=== PATIENT | female | born 1985 ===

== ENCOUNTER 2016-11-12 19:18 | Emergency (ER) | payer SELFPAY ==
--- NOTE | 2016-11-12 21:55 | C.PDOC ---
History Of Present Illness 31 year old female presents to the ED for evaluation of generalized body aches, muscular cramping and numbness to her bilateral fingertips which began around 1- 2 month ago. Patient states she feels like her whole body is "killing" her and that her "bones are going to break." Patient was recently evaluated at [facility] and was informed that she has an elevated WBC count. Patient was informed that she needed follow up and work up with PMD, but has not been able to follow up due to insurance. Patient states she has not taken any pain medication for her symptoms as she does not like to take pain meds. . She denies fever, chills. Time Seen by Provider: 11/12/16 21:19 Chief Complaint (Nursing): Back Pain History Per: Patient History/Exam Limitations: no limitations Onset/Duration Of Symptoms: Other (1-25 months ) Current Symptoms Are (Timing): Still Present Additional History Per: Patient Past Medical History Reviewed: Historical Data, Nursing Documentation, Vital Signs Vital Signs: Last Vital Signs Temp 98.2 F 11/12/16 21:58 Pulse 72 11/12/16 21:58 Resp 18 11/12/16 21:58 BP 130/86 11/12/16 21:58 Pulse Ox 99 11/12/16 22:19 - Medical History PMH: No Chronic Diseases Surgical History: No Surg Hx Family History: States: Unknown Family Hx - Social History Hx Alcohol Use: No Hx Substance Use: No - Immunization History Hx Tetanus Toxoid Vaccination: Yes Hx Influenza Vaccination: Yes Hx Pneumococcal Vaccination: Yes Review Of Systems Constitutional: Negative for: Fever, Chills Musculoskeletal: Positive for: Other (generalized body aches, muscle cramps ) Neurological: Positive for: Numbness (bilateral fingertips ) Physical Exam - Physical Exam Appears: Non-toxic, No Acute Distress Skin: Normal Color, Warm, Dry Head: Atraumatic, Normacephalic Eye(s): bilateral: Normal Inspection Oral Mucosa: Moist Neck: Supple Chest: Symmetrical, No Deformity, No Tenderness Cardiovascular: Rhythm Regular, No Murmur Respiratory: Normal Breath Sounds, No Rales, No Rhonchi, No Wheezing Extremity: Normal ROM, No Tenderness, No Pedal Edema, Capillary Refill (less than 2 seconds), No Deformity, No Swelling, No Other (erythema ) Neurological/Psych: Oriented x3, Normal Speech, Normal Cognition Gait: Steady ED Course And Treatment O2 Sat by Pulse Oximetry: 99 (on RA) Pulse Ox Interpretation: Normal Progress Note: On reassessment, patient is resting comfortably, showing no signs of distress and is stable for discharge. Patient is advised to take pain medication to manage her symptoms. Patient is advised to follow up in clinic within 1-2 days for further evaluation. 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 - Scribe Statement The provider has reviewed the documentation as recorded by the Scribe (Val Barone) All medical record entries made by the Scribe were at my direction and personally dictated by me. I have reviewed the chart and agree that the record accurately reflects my personal performance of the history, physical exam, medical decision making, and the department course for this patient. I have also personally directed, reviewed, and agree with the discharge instructions and disposition.
[2016-11-12 21:59] VITALS: BP 130/86; PULSE 72; RESP 18; TEMP 98.2
[2016-11-12 22:14] VITALS: O2SAT 99
== END 2016-11-12 22:48 | disposition home or self-care (01) ==
LOC: C.ER 19:18
DX: M79.1 Myalgia (principal)

== ENCOUNTER 2017-05-29 23:31 | Inpatient (IN) | payer OTHER, SELFPAY ==
[2017-05-29 23:31] VITALS: BMI 23.4
[2017-05-29] MEDS ORDERED: Sodium Chloride 0.9% 1,000 ML IV ONE (23:58)
[2017-05-30] MEDS ORDERED: Sodium Chloride 0.9% 1,000 ML ONE (00:03)
--- NOTE | 2017-05-30 00:15 | C.PDOC ---
History Of Present Illness Patient presents to ED c/o sharp, constant epigastric pain x 3 days associated with nausea. She denies chest pain, SOB, fever, vomiting/diarrhea, dysuria. She does admit to mild nonproductive cough. PMhx of SLE, fibromyalgia. Time Seen by Provider: 05/29/17 23:42 Chief Complaint (Nursing): Abdominal Pain History Per: Patient History/Exam Limitations: no limitations Onset/Duration Of Symptoms: Days (3) Current Symptoms Are (Timing): Still Present Severity: Moderate Location Of Pain/Discomfort: Epigastric Radiation Of Pain To:: None Quality Of Discomfort: Sharp, "Pain" Associated Symptoms: Nausea. denies: Fever, Chills, Vomiting, Diarrhea, Chest Pain, Urinary Symptoms Exacerbating Factors: Cough Past Medical History Reviewed: Historical Data, Nursing Documentation, Vital Signs Vital Signs: Last Vital Signs Temp 98.5 F 05/29/17 23:36 Pulse 74 05/30/17 01:27 Resp 20 05/30/17 01:27 BP 94/65 L 05/30/17 01:27 Pulse Ox 98 05/30/17 02:25 - Medical History PMH: Fibromyalgia Other PMH: SLE Family History: States: No Known Family Hx - Social History Hx Alcohol Use: No Hx Substance Use: Yes - Immunization History Hx Tetanus Toxoid Vaccination: No Hx Influenza Vaccination: No Hx Pneumococcal Vaccination: No Review Of Systems Except As Marked, All Systems Reviewed And Found Negative. Constitutional: Negative for: Fever, Chills Cardiovascular: Negative for: Chest Pain, Palpitations Respiratory: Positive for: Cough. Negative for: Shortness of Breath Gastrointestinal: Positive for: Nausea, Abdominal Pain. Negative for: Vomiting , Diarrhea Genitourinary: Negative for: Dysuria, Hematuria, Vaginal Discharge, Vaginal Bleeding Skin: Negative for: Rash Physical Exam - Physical Exam Appears: Well, Non-toxic, In Acute Distress (in moderate pain ) Skin: Normal Color, Warm, Dry Oral Mucosa: Moist Cardiovascular: Rhythm Regular Respiratory: Normal Breath Sounds, No Rales, No Rhonchi, No Wheezing Gastrointestinal/Abdominal: Bowel Sounds, Soft, Tenderness ((+) epigastric TTP) , No Distention, No Guarding, No Rebound, Other ((-) McBurney's, (-) Bae's) Back: Normal Inspection, No CVA Tenderness Neurological/Psych: Oriented x3 ED Course And Treatment - Laboratory Results Result Diagrams: 05/30/17 00:31 05/30/17 00:31 O2 Sat by Pulse Oximetry: 98 (RA) Pulse Ox Interpretation: Normal Progress Note: Blood work, UA, UPreg ordered and reviewed. Patient given IV NS bolus, IV pepcid. Reevaluation Time: 01:15 Reassessment Condition: Unchanged (Patient still c/o significant abdominal pain - IV morphine ordered.) - Physician Consult Information Physician Contacted: Jesus Terrell Outcome Of Conversation: Discussed patient with hospitalist, agrees with admission for acute pancreatitis - would like CT scan of abd/pelvis, will order and cancel US. Disposition - Disposition Forms: [employer] (Ukrainian)
[2017-05-30 00:39] LABS: BASO % 0.4 % (0.0-2.0); EOS # 0.2 K/uL (0.0-0.7); HEMOGLOBIN 13.8 g/dL (11.0-16.0); LYMPH # 2.6 K/uL (1.0-4.3); MEAN CELL VOLUME 96.1 fL (81.0-99.0); MEAN CORPUSCULAR HEMOGLOBIN 33.4 pg (27.0-31.0); MEAN CORPUSCULAR HGB CONC 34.7 g/dL (33.0-37.0); MEAN PLATELET VOLUME 9.7 fL (7.2-11.7); MONO # 0.7 K/uL (0.0-0.8); MONO % 9.2 % (0.0-10.0); NEUT # 4.1 K/uL (1.8-7.0); NEUT % 54.4 % (50.0-75.0); NRBC % 0.1 % (0.0-2.0); RBC 4.14 Mil/uL (3.80-5.20); RED CELL DISTRIBUTION WIDTH 13.1 % (11.5-14.5); WHITE BLOOD COUNT 7.6 K/uL (4.8-10.8)
[2017-05-30 00:47] LABS: HCG,QUALITATIVE URINE NEGATIVE (NEGATIVE)
[2017-05-30 00:48] LABS: SQUAMOUS EPITHIAL 6 /hpf (0-5); URINE BACTERIA RARE (<OCC); URINE BILIRUBIN NEGATIVE (NEGATIVE); URINE BLOOD NEGATIVE (NEGATIVE); URINE CLARITY Hazy (Clear); URINE COLOR Yellow (YELLOW); URINE GLUCOSE (UA) NORMAL (Normal); URINE LEUKOCYTE ESTERASE NEG Leu/uL (Negative); URINE PROTEIN NEGATIVE (NEGATIVE); URINE UROBILINOGEN NORMAL mg/dL (0.2-1.0)
[2017-05-30 00:59] LABS: ALB/GLOB RATIO 1.2 (1.0-2.1); ALBUMIN 4.3 g/dL (3.5-5.0); ALT/SGPT 34 U/L (9-52); AST/SGOT 30 U/L (14-36); BLOOD UREA NITROGEN 13 mg/dL (7-17); CALCIUM 9.1 mg/dl (8.6-10.4); GFR AFRICAN-AMERICAN > 60; GFR NON-AFRICAN AMERICAN > 60
[2017-05-30] MEDS ORDERED: Morphine 4 MG/ML VIAL ONE (01:31)
[2017-05-30 01:32] LABS: LIPASE 3574 U/L (23-300)
[2017-05-30] MEDS ORDERED: Sodium Chloride 0.9% 1,000 ML IV ONE (01:42)
[2017-05-30] MEDS ORDERED: Iohexol 350mg/ml 100 ML ONE (02:51)
--- NOTE | 2017-05-30 03:20 | CP.PCM.HP ---
<Aries Donaldson - Last Filed: 05/30/17 04:01> History of Present Illness - History of Present Illness History of Present Illness: 32 year old female with recently diagnosed of lupus and fibromyalgia presents to the ED today complaining of epigastric abdominal pain. Patient reports her abdominal started 3 days ago and it has been getting progressively worse. Patient states the pain has sharp in quality and non radiating. The pain is worse with moving and does not improve with ibuprofen. Patient also report to have decreased appetite and feeling nauseous since the onset of the symptoms. Patient had a similar episode 5 months ago and it eventually resolved on without medical intervention. Patient denies alcohol consumption. Patient denies fever, chills, headache, shortness of breath chest pain, changes of bowel habits or urinary symptoms. PMD: Dr. Carmona, Rheu: Dr. Kee PMHx: recently diagnosed of lupus and fibromyalgia PSHx: wrist surgery Allergy: NKDA Social Hx: Admits smoking 6-7 cigarettes and half joint of marijuana daily, denies alcohol use Family Hx: Denies family history of GI malignancy. Mother with DM, cousin with "bone cancer" Home Meds: none Present on Admission - Present on Admission Any Indicators Present on Admission: No Review of Systems - Constitutional Constitutional: As Per HPI. absent: Chills, Fever, Weight Loss - EENT Eyes: As Per HPI. absent: Blurred Vision, Decreased Night Vision Ears: As Per HPI. absent: Dizziness Nose/Mouth/Throat: As Per HPI. absent: Epistaxis, Nasal Obstruction - Breasts Breasts: As Per HPI - Cardiovascular Cardiovascular: As Per HPI. absent: Chest Pain, Chest Pain at Rest, Chest Pain with Activity, Dyspnea, Edema - Respiratory Respiratory: As Per HPI. absent: Cough, Dyspnea - Gastrointestinal Gastrointestinal: As Per HPI, Abdominal Pain, Nausea. absent: Change in Bowel Habits, Constipation, Diarrhea, Vomiting - Genitourinary Genitourinary: As Per HPI. absent: Dysuria, Flank Pain, Hematuria - Reproductive: Female Reproductive:Female: As Per HPI - Menstruation Menstruation: As Per HPI - Musculoskeletal Musculoskeletal: As Per HPI. absent: Deformity - Integumentary Integumentary: As Per HPI. absent: Acne, Change in Nails - Neurological Neurological: As Per HPI. absent: Abnormal Speech, Dizziness, Numbness - Psychiatric Psychiatric: As Per HPI. absent: Anxiety, Auditory Hallucinations - Endocrine Endocrine: As Per HPI - Hematologic/Lymphatic Hematologic: As Per HPI Past Patient History - Infectious Disease Hx of Infectious Diseases: None - Past Social History Smoking Status: Light Smoker < 10 Cigarettes Daily - ENDOCRINE/METABOLIC Hx Systemic Lupus Erythematosus: Yes - PSYCHIATRIC Hx Substance Use: Yes - SURGICAL HISTORY Hx Surgeries: No Hx Orthopedic Surgery: Yes (left wrist) - ANESTHESIA Hx Anesthesia: Yes Hx Anesthesia Reactions: No Hx Malignant Hyperthermia: No Meds Allergies/Adverse Reactions: Allergies Allergy/AdvReac Type Severity Reaction Status Date / Time No Known Allergies Allergy Unverified 05/29/17 23:40 Physical Exam - Constitutional Appears: Non-toxic, No Acute Distress, Unkempt - Head Exam Head Exam: ATRAUMATIC, NORMOCEPHALIC - Eye Exam Eye Exam: EOMI, Normal appearance Pupil Exam: PERRL - ENT Exam ENT Exam: Mucous Membranes Moist - Neck Exam Neck exam: Positive for: Normal Inspection - Respiratory Exam Respiratory Exam: Clear to Auscultation Bilateral, NORMAL BREATHING PATTERN. absent: Wheezes, Respiratory Distress - Cardiovascular Exam Cardiovascular Exam: REGULAR RHYTHM, +S1, +S2 - GI/Abdominal Exam GI & Abdominal Exam: Soft, Tenderness (epigastric). absent: Distended, Hernia - Extremities Exam Extremities exam: Positive for: normal inspection. Negative for: pedal edema, tenderness - Neurological Exam Neurological exam: Alert, Oriented x3 - Psychiatric Exam Psychiatric exam: Normal Affect, Normal Mood - Skin Skin Exam: Dry, Normal Color, Warm Results - Vital Signs Recent Vital Signs: Last Vital Signs Temp 98.5 F 05/29/17 23:36 Pulse 78 05/30/17 02:45 Resp 20 05/30/17 02:45 BP 111/69 05/30/17 02:45 Pulse Ox 97 05/30/17 02:45 - Labs Result Diagrams: 05/30/17 00:31 05/30/17 00:31 Labs: Laboratory Results - last 24 hr 05/30/17 05/30/17 05/30/17 00:31 00:31 00:31 WBC 7.6 RBC 4.14 Hgb 13.8 Hct 39.8 MCV 96.1 D MCH 33.4 H MCHC 34.7 RDW 13.1 Plt Count 170 MPV 9.7 Neut % (Auto) 54.4 Lymph % (Auto) 34.0 [place] % (Auto) 9.2 Eos % (Auto) 2.0 Baso % (Auto) 0.4 Neut # (Auto) 4.1 Lymph # (Auto) 2.6 [place] # (Auto) 0.7 Eos # (Auto) 0.2 Baso # (Auto) 0.0 Sodium 142 Potassium 3.8 Chloride 103 Carbon Dioxide 24 Anion Gap 19 BUN 13 Creatinine 0.8 Est GFR ( Amer) > 60 Est GFR (Non-Af Amer) > 60 Random Glucose 84 Calcium 9.1 Total Bilirubin 0.3 AST 30 ALT 34 Alkaline Phosphatase 66 Total Protein 7.9 Albumin 4.3 Globulin 3.5 Albumin/Globulin Ratio 1.2 Lipase 3574 H Urine Color Yellow Urine Clarity Hazy Urine pH 5.0 Ur Specific [place] 1.019 Urine Protein Negative Urine Glucose (UA) Normal Urine Ketones Negative Urine Blood Negative Urine Nitrate Negative Urine Bilirubin Negative Urine Urobilinogen Normal Ur Leukocyte Esterase Neg Urine WBC (Auto) 1 Urine RBC (Auto) < 1 Ur Squamous Epith Cells 6 H Urine Bacteria Rare Urine HCG, Qual Negative Assessment & Plan - Assessment and Plan (Free Text) Assessment: Acute pancreatitis -LR @150ml/hr -Follow up CT abd -NPO -GI consulted, Dr. Lima help appreciated SLE -Recently diagnosed by Dr. Kee -Further outpatient workup in progress Tobacco abuse -Nicoderm patch -Smoking cessation was advised Marijuana use -Cessation was advised Prophylactic measures -Pepcid -Lovenox <Jesus Terrell - Last Filed: 05/30/17 05:22> Results - Vital Signs Recent Vital Signs: Last Vital Signs Temp 98.0 F 05/30/17 04:07 Pulse 62 05/30/17 04:07 Resp 20 05/30/17 04:07 BP 119/71 05/30/17 04:07 Pulse Ox 100 05/30/17 04:07 - Labs Result Diagrams: 05/30/17 00:31 05/30/17 00:31 Labs: Laboratory Results - last 24 hr 05/30/17 05/30/17 05/30/17 00:31 00:31 00:31 WBC 7.6 RBC 4.14 Hgb 13.8 Hct 39.8 MCV 96.1 D MCH 33.4 H MCHC 34.7 RDW 13.1 Plt Count 170 MPV 9.7 Neut % (Auto) 54.4 Lymph % (Auto) 34.0 [place] % (Auto) 9.2 Eos % (Auto) 2.0 Baso % (Auto) 0.4 Neut # (Auto) 4.1 Lymph # (Auto) 2.6 [place] # (Auto) 0.7 Eos # (Auto) 0.2 Baso # (Auto) 0.0 Sodium 142 Potassium 3.8 Chloride 103 Carbon Dioxide 24 Anion Gap 19 BUN 13 Creatinine 0.8 Est GFR ( Amer) > 60 Est GFR (Non-Af Amer) > 60 Random Glucose 84 Calcium 9.1 Total Bilirubin 0.3 AST 30 ALT 34 Alkaline Phosphatase 66 Total Protein 7.9 Albumin 4.3 Globulin 3.5 Albumin/Globulin Ratio 1.2 Lipase 3574 H Urine Color Yellow Urine Clarity Hazy Urine pH 5.0 Ur Specific [place] 1.019 Urine Protein Negative Urine Glucose (UA) Normal Urine Ketones Negative Urine Blood Negative Urine Nitrate Negative Urine Bilirubin Negative Urine Urobilinogen Normal Ur Leukocyte Esterase Neg Urine WBC (Auto) 1 Urine RBC (Auto) < 1 Ur Squamous Epith Cells 6 H Urine Bacteria Rare Urine HCG, Qual Negative Assessment & Plan - Date & Time Date: 05/30/17 (I have seen and examined the patient. I agree with the findings and plan of care as documented by Dr. Donaldson. Patient with acute pancreatitis. NPO. IVF. Symptomatic treatment. Consult to GI. Denies alcohol use. Monitor for acute changes.) Time: 05:21 Attending/Attestation - Attestation I have personally seen and examined this patient.: Yes I have fully participated in the care of the patient.: Yes I have reviewed all pertinent clinical information: Yes
[2017-05-30] MEDS: Lactated Ringer's 1,000 ML IV SCH ×5 (03:53→20:29)
[2017-05-30] MEDS ORDERED: Tramadol 25 mg PO ONE ×2 (04:04→13:21)
--- NOTE | 2017-05-30 05:00 | CT ---
EXAM: CT Abdomen and Pelvis With Intravenous Contrast CLINICAL HISTORY: 32 years old, female; Pain; Abdominal pain; Additional info: Abd pain, pancreatitis TECHNIQUE: Axial computed tomography images of the abdomen and pelvis with intravenous contrast. All CT scans at this facility use one or more dose reduction techniques, viz.: automated exposure control; ma/kV adjustment per patient size (including targeted exams where dose is matched to indication; i.e. head); or iterative reconstruction technique. Coronal and sagittal reformatted images were created and reviewed. CONTRAST: 100 mL of [id number] administered intravenously. COMPARISON: No relevant prior studies available. FINDINGS: Lung bases: Unremarkable. No mass. No consolidation. ABDOMEN: Liver: Unremarkable. No mass. Gallbladder and bile ducts: Unremarkable. No calcified stones. No ductal dilation. Pancreas: No peripancreatic inflammatory stranding or fluid to suggest acute pancreatitis. No mass. No ductal dilation. Spleen: Unremarkable. No splenomegaly. Adrenals: Unremarkable. No mass. Kidneys and ureters: Unremarkable. No solid mass. No hydronephrosis. Stomach and bowel: Unremarkable. No obstruction. No mucosal thickening. Appendix: No findings to suggest acute appendicitis. Normal appendix. PELVIS: Bladder: Unremarkable. No mass. Reproductive: Unremarkable as visualized. ABDOMEN and PELVIS: Intraperitoneal space: Unremarkable. No free air. No significant fluid collection. Bones/joints: No acute fracture. No dislocation. Soft tissues: Unremarkable. Vasculature: Unremarkable. No abdominal aortic aneurysm. Lymph nodes: Unremarkable. No enlarged lymph nodes. IMPRESSION: No evidence of an acute intra-abdominal or pelvic abnormality. No evidence of acute pancreatitis.
[2017-05-30 07:11] LABS: BASO % 0.5 % (0.0-2.0); EOS # 0.2 K/uL (0.0-0.7); EOS % 2.8 % (0.0-4.0); HEMOGLOBIN 12.1 g/dL (11.0-16.0); LYMPH # 3.7 K/uL (1.0-4.3); LYMPH % 45.6 % (20.0-40.0); MEAN CELL VOLUME 96.2 fL (81.0-99.0); MEAN CORPUSCULAR HEMOGLOBIN 33.2 pg (27.0-31.0); MEAN CORPUSCULAR HGB CONC 34.5 g/dL (33.0-37.0); MEAN PLATELET VOLUME 9.8 fL (7.2-11.7); MONO # 0.7 K/uL (0.0-0.8); MONO % 8.4 % (0.0-10.0); NEUT # 3.5 K/uL (1.8-7.0); NEUT % 42.7 % (50.0-75.0); RBC 3.65 Mil/uL (3.80-5.20); RED CELL DISTRIBUTION WIDTH 12.7 % (11.5-14.5); WHITE BLOOD COUNT 8.2 K/uL (4.8-10.8)
--- NOTE | 2017-05-30 07:21 | RAD ---
Chest x-ray single frontal view History: Infiltrate. Comparison: None available. Findings: Bibasilar breast shadows. No focal infiltrate or effusion. Impression: No focal infiltrate or effusion.
[2017-05-30 08:06] LABS: ALB/GLOB RATIO 1.1 (1.0-2.1); ALBUMIN 3.2 g/dL (3.5-5.0); ALT/SGPT 53 U/L (9-52); AST/SGOT 47 U/L (14-36); BLOOD UREA NITROGEN 7 mg/dL (7-17); CALCIUM 7.8 mg/dl (8.6-10.4); GFR AFRICAN-AMERICAN > 60; GFR NON-AFRICAN AMERICAN > 60
[2017-05-30] MEDS: Enoxaparin 40 mg Syringe SC SCH (09:07)
--- NOTE | 2017-05-30 12:58 | CP.PCM.CON ---
History of Present Illness - History of Present Illness History of Present Illness: GI service consult reuested for this 32 year old woman admitted with 3 days of sharp, nonradiating, pleuritic epigastric pain associated with nausea and elevated Lipase. Patient denies alcohol drinking or history of gallbladder disease. CT scan and abdominal sonogram are unremarkable. Patient recently diagnosed with Fibromyalgia and SLE by Dr Kee, no new medications were taken. Review of Systems - Constitutional Constitutional: Chills, Headache. absent: Fever - Gastrointestinal Gastrointestinal: Abdominal Pain, Nausea. absent: Constipation, Diarrhea, Hematochezia, Melena, Vomiting - Musculoskeletal Musculoskeletal: Arthralgias, Back Pain Past Patient History - Infectious Disease Hx of Infectious Diseases: None - Past Medical History & Family History Past Medical History?: Yes - Past Social History Smoking Status: Light Smoker < 10 Cigarettes Daily Alcohol: None - CARDIAC Hx Cardiac Disorders: No - PULMONARY Hx Respiratory Disorders: No - NEUROLOGICAL Hx Neurological Disorder: No - HEENT Hx HEENT Problems: No - RENAL Hx Chronic Kidney Disease: No - ENDOCRINE/METABOLIC Hx Systemic Lupus Erythematosus: Yes - HEMATOLOGICAL/ONCOLOGICAL Hx Blood Disorders: No - INTEGUMENTARY Hx Dermatological Problems: No - MUSCULOSKELETAL/RHEUMATOLOGICAL Hx Musculoskeletal Disorders: No Hx Falls: No - GASTROINTESTINAL Hx Gastrointestinal Disorders: No - GENITOURINARY/GYNECOLOGICAL Hx Genitourinary Disorders: No - PSYCHIATRIC Hx Substance Use: Yes - SURGICAL HISTORY Hx Surgeries: No Hx Orthopedic Surgery: Yes (left wrist) - ANESTHESIA Hx Anesthesia: Yes Hx Anesthesia Reactions: No Hx Malignant Hyperthermia: No Meds Allergies/Adverse Reactions: Allergies Allergy/AdvReac Type Severity Reaction Status Date / Time No Known Allergies Allergy Unverified 05/29/17 23:40 - Medications Medications: Current Medications Enoxaparin Sodium (Lovenox) 40 mg SC DAILY [facility] Last Admin: 05/30/17 09:07 Dose: 40 mg Lactated Ringer's (Lactated Ringer's) 1,000 mls @ 250 mls/hr IV .Q4H [facility] Morphine Sulfate (Morphine) 2 mg IV Q6H PRN PRN Reason: Pain, moderate (4-7) Ondansetron HCl (Zofran Inj) 4 mg IVP Q6 [facility] Last Admin: 05/30/17 12:19 Dose: Not Given Physical Exam - Constitutional Appears: No Acute Distress - Head Exam Head Exam: NORMOCEPHALIC - Eye Exam Eye Exam: absent: Scleral icterus - Respiratory Exam Respiratory Exam: Clear to Auscultation Bilateral - Cardiovascular Exam Cardiovascular Exam: REGULAR RHYTHM - GI/Abdominal Exam GI & Abdominal Exam: Soft. absent: Guarding, Mass, Organomegaly, Rebound, Tenderness Results - Vital Signs Recent Vital Signs: Last Vital Signs Temp 97.9 F 05/30/17 07:35 Pulse 65 05/30/17 07:35 Resp 20 05/30/17 07:35 BP 98/57 L 05/30/17 07:35 Pulse Ox 98 05/30/17 07:35 - Labs Result Diagrams: 05/30/17 07:01 05/30/17 07:01 Labs: Laboratory Results - last 24 hr 05/30/17 05/30/17 05/30/17 00:31 00:31 00:31 WBC 7.6 RBC 4.14 Hgb 13.8 Hct 39.8 MCV 96.1 D MCH 33.4 H MCHC 34.7 RDW 13.1 Plt Count 170 MPV 9.7 Neut % (Auto) 54.4 Lymph % (Auto) 34.0 [place] % (Auto) 9.2 Eos % (Auto) 2.0 Baso % (Auto) 0.4 Neut # (Auto) 4.1 Lymph # (Auto) 2.6 [place] # (Auto) 0.7 Eos # (Auto) 0.2 Baso # (Auto) 0.0 Sodium 142 Potassium 3.8 Chloride 103 Carbon Dioxide 24 Anion Gap 19 BUN 13 Creatinine 0.8 Est GFR ( Amer) > 60 Est GFR (Non-Af Amer) > 60 Random Glucose 84 Calcium 9.1 Total Bilirubin 0.3 AST 30 ALT 34 Alkaline Phosphatase 66 Total Protein 7.9 Albumin 4.3 Globulin 3.5 Albumin/Globulin Ratio 1.2 Lipase 3574 H Urine Color Yellow Urine Clarity Hazy Urine pH 5.0 Ur Specific [place] 1.019 Urine Protein Negative Urine Glucose (UA) Normal Urine Ketones Negative Urine Blood Negative Urine Nitrate Negative Urine Bilirubin Negative Urine Urobilinogen Normal Ur Leukocyte Esterase Neg Urine WBC (Auto) 1 Urine RBC (Auto) < 1 Ur Squamous Epith Cells 6 H Urine Bacteria Rare Urine HCG, Qual Negative 05/30/17 05/30/17 07:01 07:01 WBC 8.2 RBC 3.65 L Hgb 12.1 Hct 35.1 MCV 96.2 MCH 33.2 H MCHC 34.5 RDW 12.7 Plt Count 147 MPV 9.8 Neut % (Auto) 42.7 L Lymph % (Auto) 45.6 H [place] % (Auto) 8.4 Eos % (Auto) 2.8 Baso % (Auto) 0.5 Neut # (Auto) 3.5 Lymph # (Auto) 3.7 [place] # (Auto) 0.7 Eos # (Auto) 0.2 Baso # (Auto) 0.0 Sodium 140 Potassium 4.0 Chloride 106 Carbon Dioxide 24 Anion Gap 14 BUN 7 Creatinine 0.6 L Est GFR ( Amer) > 60 Est GFR (Non-Af Amer) > 60 Random Glucose 82 Calcium 7.8 L Total Bilirubin 0.2 AST 47 H D ALT 53 H D Alkaline Phosphatase 57 Total Protein 6.0 L Albumin 3.2 L D Globulin 2.8 Albumin/Globulin Ratio 1.1 Lipase Urine Color Urine Clarity Urine pH Ur Specific [place] Urine Protein Urine Glucose (UA) Urine Ketones Urine Blood Urine Nitrate Urine Bilirubin Urine Urobilinogen Ur Leukocyte Esterase Urine WBC (Auto) Urine RBC (Auto) Ur Squamous Epith Cells Urine Bacteria Urine HCG, Qual Assessment & Plan (1) Pancreatitis, acute Assessment and Plan: Patient meets 2/3 criteria for pancreatitis diagnosis, although CT shows normal pancreas. LFTs slightly elevated. No evidence of gallstones in gallbladder. Pancreatitis may be from autoimmune etiology if patient truly does have SLE Rec: Bowel rest, aggressive IV hydration. Additional labs ordered to work up for causes of pancreatitis. PPI recommended Status: Acute - Date & Time Date: 05/30/17 Time: 13:02
--- NOTE | 2017-05-30 13:16 | US ---
HISTORY: RUQ pain COMPARISON: None. TECHNIQUE: Sonographic evaluation of the right upper quadrant of the abdomen. FINDINGS: LIVER: Measures 16.8 cm in length. Normal echogenicity of the liver parenchyma. No mass. No intrahepatic bile duct dilatation. GALLBLADDER: There are no gallstones, wall thickening or pericholecystic fluid. The sonographic Bae's sign is negative. COMMON BILE DUCT: Measures 2.4 mm. No stones. No dilatation. PANCREAS: Unremarkable as visualized. No mass. No ductal dilatation. RIGHT KIDNEY: Measures 10.3 cm in length. Normal echogenicity. No calculus, mass, or hydronephrosis. AORTA: No aneurysmal dilatation. IVC: Unremarkable. OTHER FINDINGS: None . IMPRESSION: No cholelithiasis or biliary dilatation.
--- NOTE | 2017-05-30 18:48 | CP.PCM.PN ---
<Brian Gamez - Last Filed: 05/30/17 19:28> Subjective - Date & Time of Evaluation Date of Evaluation: 05/30/17 Time of Evaluation: 18:45 - Subjective Subjective: Patient seen and examined at bedside. States pain is much better. No other complaints at this time. Had long discussion with patient and her mother about possible cause of elevated lipase. Agreed with plan for patient to stay and complete workup. Objective - Vital Signs/Intake and Output Vital Signs (last 24 hours): Temp Pulse Resp BP Pulse Ox 98.2 F 56 L 20 102/65 99 05/30/17 16:45 05/30/17 16:45 05/30/17 16:45 05/30/17 16:45 05/30/17 16:45 Intake and Output: 05/30/17 05/30/17 06:59 18:59 Intake Total 1500 Balance 1500 - Medications Medications: Current Medications Enoxaparin Sodium (Lovenox) 40 mg SC DAILY [facility] Last Admin: 05/30/17 09:07 Dose: 40 mg Lactated Ringer's (Lactated Ringer's) 1,000 mls @ 125 mls/hr IV .Q8H [facility] Morphine Sulfate (Morphine) 2 mg IV Q6H PRN PRN Reason: Pain, moderate (4-7) Ondansetron HCl (Zofran Inj) 4 mg IVP Q6 [facility] Last Admin: 05/30/17 18:16 Dose: 4 mg Pantoprazole Sodium (Protonix Ec Tab) 40 mg PO DAILY [facility] - Labs Labs: 05/30/17 07:01 05/30/17 07:01 - Constitutional Appears: Well - Head Exam Head Exam: ATRAUMATIC, NORMAL INSPECTION, NORMOCEPHALIC - Eye Exam Eye Exam: EOMI, Normal appearance, PERRL Pupil Exam: NORMAL ACCOMODATION, PERRL - ENT Exam ENT Exam: Mucous Membranes Moist, Normal Exam - Neck Exam Neck Exam: Full ROM, Normal Inspection. absent: Lymphadenopathy - Respiratory Exam Respiratory Exam: Clear to Ausculation Bilateral, NORMAL BREATHING PATTERN - Cardiovascular Exam Cardiovascular Exam: REGULAR RHYTHM, +S1, +S2. absent: Murmur - GI/Abdominal Exam GI & Abdominal Exam: Soft, Normal Bowel Sounds. absent: Tenderness - Extremities Exam Extremities Exam: Full ROM, Normal Capillary Refill, Normal Inspection. absent : Joint Swelling, Pedal Edema - Back Exam Back Exam: NORMAL INSPECTION - Neurological Exam Neurological Exam: Alert, Awake, CN II-XII Intact, Normal Gait, Oriented x3 - Psychiatric Exam Psychiatric exam: Normal Affect, Normal Mood - Skin Skin Exam: Dry, Intact, Normal Color, Warm Assessment and Plan - Assessment and Plan (Free Text) Assessment: Acute pancreatitis LR @ 125 ml/hr CT did no show any evidence of pancreatits Liquid diet GI consulted, Dr. Lima CRP Hep panel Lipid Panel ESR Gliadin ASCA CRESCENCIO IGG Subclass 4 Liver Kidney SHITAL AB Mitochondrial AB SLE Recently diagnosed by Dr. Kee Further outpatient workup in progress Tobacco abuse Nicoderm patch Smoking cessation was advised Marijuana use Cessation was advised Prophylactic measures GI PPX not indicated Lovenox <Marino Barone - Last Filed: 05/30/17 20:15> Objective - Vital Signs/Intake and Output Vital Signs (last 24 hours): Temp Pulse Resp BP Pulse Ox 98.2 F 56 L 20 102/65 99 05/30/17 16:45 05/30/17 16:45 05/30/17 16:45 05/30/17 16:45 05/30/17 16:45 Intake and Output: 05/30/17 05/31/17 18:59 06:59 Intake Total 1500 Balance 1500 - Medications Medications: Current Medications Enoxaparin Sodium (Lovenox) 40 mg SC DAILY [facility] Last Admin: 05/30/17 09:07 Dose: 40 mg Lactated Ringer's (Lactated Ringer's) 1,000 mls @ 125 mls/hr IV .Q8H [facility] Morphine Sulfate (Morphine) 2 mg IV Q6H PRN PRN Reason: Pain, moderate (4-7) Ondansetron HCl (Zofran Inj) 4 mg IVP Q6 [facility] Last Admin: 05/30/17 18:16 Dose: 4 mg Pantoprazole Sodium (Protonix Ec Tab) 40 mg PO DAILY [facility] - Labs Labs: 05/30/17 07:01 05/30/17 07:01 Attending/Attestation - Attestation I have personally seen and examined this patient.: Yes I have fully participated in the care of the patient.: Yes I have reviewed all pertinent clinical information, including history, physical exam and plan: Yes Notes (Text): 05/30/17 20:11 Patient was seen and examined at 3:30 PM. Exam, assessment and plan were gone over with the resident as well as the patient and her Mom who was at bedside. Exstensive conversation with the patient concerning the proper use of narcotic pain medication. She explained to me that her pain level was 8/10 at the time of my exam however she appeared to be in NO distress and did not appear to be uncomfortable. Explained to her that due to the addictive potential of Morphine she should only ask for it if she is close to tears. She expressed understanding. Follow up workup (as documented in resident note above) for the other possible causes of elevated Lipase (HIV, Hepatitis Panel, Celiac Disease) along with the autoimmune workup for Pancreatitis. Explained to patient and Mom that it may take a few days before some of these test come back. Patient was counseled against her daily Marijuana use. Marino Barone D.O.
[2017-05-31] MEDS: Lactated Ringer's 1,000 ML IV SCH ×4 (05:30→20:49)
[2017-05-31 08:30] LABS: ALB/GLOB RATIO 1.1 (1.0-2.1); ALBUMIN 3.5 g/dL (3.5-5.0); ALT/SGPT 46 U/L (9-52); AST/SGOT 38 U/L (14-36); BLOOD UREA NITROGEN 4 mg/dL (7-17); CALCIUM 9.1 mg/dl (8.6-10.4); GFR AFRICAN-AMERICAN > 60; GFR NON-AFRICAN AMERICAN > 60; HDL CHOLESTEROL 26 mg/dL (30-70)
[2017-05-31] MEDS ORDERED: Lactated Ringer's 1,000 ML IV SCH (08:45)
[2017-05-31 08:47] LABS: LDL CHOLESTEROL 79 mg/dL (0-129)
[2017-05-31 08:52] LABS: HEPATITIS B SURFACE AG Negative (NEGATIVE)
[2017-05-31 08:58] LABS: HEPATITIS A IGM NEGATIVE (NEGATIVE); HEPATITIS B CORE AB NEGATIVE (NEGATIVE)
[2017-05-31 09:10] LABS: HEPATITIS C ANTIBODY NEGATIVE (NEGATIVE)
[2017-05-31] MEDS: Pantoprazole 40 mg EC Tab PO SCH (09:27)
[2017-05-31] MEDS: Enoxaparin 40 mg Syringe SC SCH (09:27)
[2017-05-31 09:47] LABS: BARBITURATES, UR NEGATIVE (NEGATIVE); BENZODIAZEPINES, UR NEGATIVE (NEGATIVE); OPIATES, UR NEGATIVE (NEGATIVE); PHENCYCLIDINE, UR NEGATIVE (NEGATIVE)
--- NOTE | 2017-05-31 11:08 | CP.PCM.PN ---
Addendum entered and electronically signed by Grazyna Fair DO 05/31/17 12:02: MRCP ordered per GI. Original Note: <Grazyna Fair - Last Filed: 05/31/17 11:03> Subjective - Date & Time of Evaluation Date of Evaluation: 05/31/17 Time of Evaluation: 08:00 - Subjective Subjective: Patient seen and examined at bedside. States she is still having abdominal pain. She is able to tolerate clear liquid diet but still has the pain. Patient otherwise has no new complaints. She had not had a bowel movement in 2 days. Patient is urinating well. Objective - Vital Signs/Intake and Output Vital Signs (last 24 hours): Temp Pulse Resp BP Pulse Ox 98.1 F 60 18 93/57 L 97 05/31/17 07:25 05/31/17 07:25 05/31/17 07:25 05/31/17 07:25 05/31/17 07:25 - Medications Medications: Current Medications Enoxaparin Sodium (Lovenox) 40 mg SC DAILY [facility] Last Admin: 05/31/17 09:27 Dose: 40 mg Lactated Ringer's (Lactated Ringer's) 1,000 mls @ 175 mls/hr IV .Q5H43M [facility] Morphine Sulfate (Morphine) 2 mg IV Q6H PRN PRN Reason: Pain, moderate (4-7) Ondansetron HCl (Zofran Inj) 4 mg IVP Q6 [facility] Last Admin: 05/30/17 23:41 Dose: 4 mg Pantoprazole Sodium (Protonix Ec Tab) 40 mg PO DAILY [facility] Last Admin: 05/31/17 09:27 Dose: 40 mg - Labs Labs: 05/30/17 07:01 05/31/17 07:55 - Constitutional Appears: Non-toxic, No Acute Distress - Head Exam Head Exam: ATRAUMATIC, NORMAL INSPECTION - Eye Exam Eye Exam: EOMI, Normal appearance Pupil Exam: NORMAL ACCOMODATION - ENT Exam ENT Exam: Mucous Membranes Moist - Respiratory Exam Respiratory Exam: Clear to Ausculation Bilateral, NORMAL BREATHING PATTERN. absent: Respiratory Distress - Cardiovascular Exam Cardiovascular Exam: REGULAR RHYTHM, +S1, +S2 - GI/Abdominal Exam GI & Abdominal Exam: Soft, Tenderness, Normal Bowel Sounds. absent: Distended, Firm, Guarding - Extremities Exam Extremities Exam: Normal Inspection - Back Exam Back Exam: NORMAL INSPECTION - Neurological Exam Neurological Exam: Alert, Awake, CN II-XII Intact, Oriented x3 Neuro motor strength exam: Left Upper Extremity: 5, Right Upper Extremity: 5, Left Lower Extremity: 5, Right Lower Extremity: 5 - Psychiatric Exam Psychiatric exam: Normal Affect, Normal Mood - Skin Skin Exam: Dry, Intact, Normal Color, Warm Assessment and Plan - Assessment and Plan (Free Text) Assessment: Acute pancreatitis LR @ 175 ml/hr CT did no show any evidence of pancreatitis Liquid diet GI consulted, Dr. Lima - help appreciated CRP 10.10 (elevated) Hep panel negative HIv negative Lipid Panel: Tchol 123, LDL 123, HDL 26, Trig 103 ESR 30 (elevated) f/u Gliadin, ASCA, ANCA, IGG Subclass 4, Liver Kidney SHITAL AB, Mitochondrial AB Morphone 2mg IVP Q6 hours prn pain severe Zofran prn nausea SLE Recently diagnosed by Dr. Kee Further outpatient workup in progress Patient stets she will need to get her eyes checked prior to starting medications Tobacco abuse Nicoderm patch Smoking cessation was advised Marijuana use Cessation was advised Prophylactic measures Protonix 40mg PO daily Lovenox 40mg SC daily <Samir Peñaloza - Last Filed: 05/31/17 12:25> Objective - Vital Signs/Intake and Output Vital Signs (last 24 hours): Temp Pulse Resp BP Pulse Ox 98.1 F 60 18 93/57 L 97 05/31/17 07:25 05/31/17 07:25 05/31/17 07:25 05/31/17 07:25 05/31/17 07:25 - Medications Medications: Current Medications Enoxaparin Sodium (Lovenox) 40 mg SC DAILY [facility] Last Admin: 05/31/17 09:27 Dose: 40 mg Lactated Ringer's (Lactated Ringer's) 1,000 mls @ 175 mls/hr IV .Q5H43M [facility] Morphine Sulfate (Morphine) 2 mg IV Q6H PRN PRN Reason: Pain, moderate (4-7) Ondansetron HCl (Zofran Inj) 4 mg IVP Q6 [facility] Last Admin: 05/30/17 23:41 Dose: 4 mg Pantoprazole Sodium (Protonix Ec Tab) 40 mg PO DAILY [facility] Last Admin: 05/31/17 09:27 Dose: 40 mg - Labs Labs: 05/30/17 07:01 05/31/17 07:55 Attending/Attestation - Attestation I have personally seen and examined this patient.: Yes I have fully participated in the care of the patient.: Yes I have reviewed all pertinent clinical information, including history, physical exam and plan: Yes Notes (Text): 05/31/17 12:18 Medical attending: Patient was seen and examined by me as well. Agree with the above note by the resident The patient was reporting some mild pain when we saw her - however she said it was tolerable and did not ask for any pain medications. From my discussion with the patient she is seeing outpatient Rhematology for possible either SLE or a connective tissue disease. She tells us she has not been started on medication yet until she gets an eye examination. This does suggest to me someone maybe wanting to start plaquenil. I reviewed some of the previous lab work and she does have an elevated CUT OFF SAW TENDER METAL antibody which I'm afraid I do not know much about. Other auto-immune studies have been negative including SLA, SSA, SSB, dSDNA, CCP and RF and also CRESCENCIO are negative in the recent past. HIV and RPR are also non reactive as well. If one of these were elevated I did think maybe she could benefit from a short course of IV solumedrol however given that these are negative, then for now will not give IV solumedrol. At this moment we are pending some other additional autoimmune studies that were recently sent out. GI has ordered MRCP, currently pending at this moment the results. thank you Samir Peñaloza
--- NOTE | 2017-05-31 11:25 | CP.PCM.PN ---
Subjective - Date & Time of Evaluation Date of Evaluation: 05/31/17 Time of Evaluation: 11:22 - Subjective Subjective: Patient states that the abdominal pain is less severe than on admission, but still present. She continues to complain of nausea, but has not vomited since yesterday. She has not had a bowel movement today. Objective - Vital Signs/Intake and Output Vital Signs (last 24 hours): Temp Pulse Resp BP Pulse Ox 98.1 F 60 18 93/57 L 97 05/31/17 07:25 05/31/17 07:25 05/31/17 07:25 05/31/17 07:25 05/31/17 07:25 - Medications Medications: Current Medications Enoxaparin Sodium (Lovenox) 40 mg SC DAILY [facility] Last Admin: 05/31/17 09:27 Dose: 40 mg Lactated Ringer's (Lactated Ringer's) 1,000 mls @ 175 mls/hr IV .Q5H43M [facility] Morphine Sulfate (Morphine) 2 mg IV Q6H PRN PRN Reason: Pain, moderate (4-7) Ondansetron HCl (Zofran Inj) 4 mg IVP Q6 [facility] Last Admin: 05/30/17 23:41 Dose: 4 mg Pantoprazole Sodium (Protonix Ec Tab) 40 mg PO DAILY [facility] Last Admin: 05/31/17 09:27 Dose: 40 mg - Labs Labs: 05/30/17 07:01 05/31/17 07:55 - Constitutional Appears: No Acute Distress - Head Exam Head Exam: ATRAUMATIC, NORMOCEPHALIC - Eye Exam Eye Exam: EOMI, PERRL - Neck Exam Neck Exam: absent: Lymphadenopathy, Thyromegaly - Respiratory Exam Respiratory Exam: NORMAL BREATHING PATTERN. absent: Rales, Rhonchi, Wheezes - Cardiovascular Exam Cardiovascular Exam: REGULAR RHYTHM, +S1, +S2. absent: Gallop, Rubs, Murmur - GI/Abdominal Exam GI & Abdominal Exam: Soft, Normal Bowel Sounds. absent: Tenderness, Mass, Organomegaly - Rectal Exam Rectal Exam: Deferred - Extremities Exam Extremities Exam: absent: Calf Tenderness, Pedal Edema Assessment and Plan (1) Pancreatitis, acute Assessment & Plan: Patient has acute pancreatitis, evidently not related to biliary tract disease, without evidence of organ failure and mild by CT criteria. Will order MRCP to evaluate the pancreatic duct. Status: Acute
[2017-05-31] MEDS ORDERED: Gadodiamide 287 mg/ml 20 ml IV ONE (12:05)
--- NOTE | 2017-05-31 13:39 | MRI ---
PROCEDURE: Magnetic Resonance Cholangiopancreatography HISTORY: History of pancreatitis evaluate for pancreatic divisum. COMPARISON: None available. TECHNIQUE: Multiplanar, multisequence MR images of the abdomen were obtained, including heavily T2 weighted MRCP images of the biliary system. Rotating maximum intensity projection images of the biliary system were generated. FINDINGS: MRCP: The common bile duct is of a normal caliber. No evidence of choledocholithiasis. No intrahepatic biliary ductal dilatation. LIVER: Unremarkable. GALLBLADDER: Unremarkable. SPLEEN: Unremarkable. PANCREAS: The pancreas is normal in size and shape. There is no MRI or MRCP evidence of pancreatic divisum ADRENALS: Unremarkable. KIDNEYS: Unremarkable. AORTA: No aneurysm. ASCITES: None. OTHER FINDINGS: There is a trace right pleural effusion. IMPRESSION: No evidence of acute pathology in the abdomen. No evidence of cholelithiasis or cholecystitis. No evidence of pancreatic divisum. The pancreatic tree is not dilated. Trace right pleural effusion.
[2017-06-01] MEDS: Lactated Ringer's 1,000 ML IV SCH ×3 (00:56→06:51)
[2017-06-01 07:52] LABS: BASO % 0.3 % (0.0-2.0); EOS # 0.1 K/uL (0.0-0.7); EOS % 1.6 % (0.0-4.0); HEMOGLOBIN 12.2 g/dL (11.0-16.0); LYMPH # 2.8 K/uL (1.0-4.3); LYMPH % 34.1 % (20.0-40.0); MEAN CELL VOLUME 95.2 fL (81.0-99.0); MEAN CORPUSCULAR HEMOGLOBIN 33.2 pg (27.0-31.0); MEAN CORPUSCULAR HGB CONC 34.8 g/dL (33.0-37.0); MEAN PLATELET VOLUME 9.6 fL (7.2-11.7); MONO # 0.5 K/uL (0.0-0.8); MONO % 5.8 % (0.0-10.0); NEUT # 4.7 K/uL (1.8-7.0); NEUT % 58.2 % (50.0-75.0); NRBC % 0.1 % (0.0-2.0); RBC 3.67 Mil/uL (3.80-5.20); RED CELL DISTRIBUTION WIDTH 12.8 % (11.5-14.5); WHITE BLOOD COUNT 8.1 K/uL (4.8-10.8)
[2017-06-01 08:05] LABS: ALB/GLOB RATIO 1.2 (1.0-2.1); ALBUMIN 3.4 g/dL (3.5-5.0); ALT/SGPT 35 U/L (9-52); AST/SGOT 25 U/L (14-36); BLOOD UREA NITROGEN 3 mg/dL (7-17); CALCIUM 9.2 mg/dl (8.6-10.4); GFR AFRICAN-AMERICAN > 60; GFR NON-AFRICAN AMERICAN > 60
--- NOTE | 2017-06-01 08:35 | CP.PCM.PN ---
<Grazyna Fair - Last Filed: 06/01/17 10:17> Subjective - Date & Time of Evaluation Date of Evaluation: 06/01/17 Time of Evaluation: 07:00 - Subjective Subjective: Patient states that the abdominal pain is less severe than on admission, but still present. She continues to complain of nausea, but has not vomited. She states she feels like she is ready to eat more solid foods. Otherwise denies fever/chills, SOB, chest pain, back pain. She is urinating frequently. Patient is ambulating well. Objective - Vital Signs/Intake and Output Vital Signs (last 24 hours): Temp Pulse Resp BP Pulse Ox 98.4 F 60 18 102/63 96 06/01/17 07:20 06/01/17 07:20 06/01/17 07:20 06/01/17 07:20 06/01/17 07:20 - Medications Medications: Current Medications Enoxaparin Sodium (Lovenox) 40 mg SC DAILY [facility] Last Admin: 05/31/17 09:27 Dose: 40 mg Lactated Ringer's (Lactated Ringer's) 1,000 mls @ 175 mls/hr IV .Q5H43M [facility] Last Admin: 06/01/17 06:51 Dose: 175 mls/hr Morphine Sulfate (Morphine) 2 mg IV Q6H PRN PRN Reason: Pain, moderate (4-7) Ondansetron HCl (Zofran Inj) 4 mg IVP Q6 [facility] Last Admin: 06/01/17 06:47 Dose: 4 mg Pantoprazole Sodium (Protonix Ec Tab) 40 mg PO DAILY [facility] Last Admin: 05/31/17 09:27 Dose: 40 mg - Labs Labs: 06/01/17 07:41 06/01/17 07:41 - Constitutional Appears: Non-toxic, No Acute Distress - Head Exam Head Exam: ATRAUMATIC, NORMAL INSPECTION - Eye Exam Eye Exam: EOMI Pupil Exam: NORMAL ACCOMODATION - ENT Exam ENT Exam: Mucous Membranes Moist - Respiratory Exam Respiratory Exam: Clear to Ausculation Bilateral, NORMAL BREATHING PATTERN. absent: Respiratory Distress - Cardiovascular Exam Cardiovascular Exam: REGULAR RHYTHM, +S1, +S2 - GI/Abdominal Exam GI & Abdominal Exam: Soft, Tenderness, Normal Bowel Sounds. absent: Distended, Firm, Guarding - Extremities Exam Extremities Exam: Normal Inspection. absent: Calf Tenderness, Pedal Edema - Back Exam Back Exam: NORMAL INSPECTION. absent: CVA tenderness (L), CVA tenderness (R), paraspinal tenderness - Neurological Exam Neurological Exam: Alert, Awake, CN II-XII Intact, Normal Gait, Oriented x3 Neuro motor strength exam: Left Upper Extremity: 5, Right Upper Extremity: 5, Left Lower Extremity: 5, Right Lower Extremity: 5 - Psychiatric Exam Psychiatric exam: Normal Affect, Normal Mood - Skin Skin Exam: Dry, Intact, Normal Color, Warm Assessment and Plan - Assessment and Plan (Free Text) Assessment: Acute pancreatitis LR @ 175 ml/hr CT did no show any evidence of pancreatitis Will advance to soft low fat diet today, patient has tolerated liquid diet GI consulted, Dr. Lima - help appreciated CRP 10.10 (elevated) Hep panel negative HIv negative Lipid Panel: Tchol 123, LDL 123, HDL 26, Trig 103 ESR 30 (elevated) f/u Gliadin, ASCA, ANCA, IGG Subclass 4, Liver Kidney SHITAL AB, Mitochondrial AB Morphine 2mg IVP Q6 hours prn pain severe - patient has not been requiring pain medications Zofran prn nausea MRCP 04/30 - normal SLE Recently diagnosed by Dr. Kee Further outpatient workup in progress Patient statss she will need to get her eyes checked prior to starting medications Tobacco abuse Nicoderm patch Smoking cessation was advised Marijuana use Cessation was advised Prophylactic measures Protonix 40mg PO daily Lovenox 40mg SC daily Dispo: pending GI clearance <Samir Peñaloza - Last Filed: 06/01/17 11:12> Objective - Vital Signs/Intake and Output Vital Signs (last 24 hours): Temp Pulse Resp BP Pulse Ox 98.4 F 60 18 102/63 96 06/01/17 07:20 06/01/17 07:20 06/01/17 07:20 06/01/17 07:20 06/01/17 07:20 - Medications Medications: Current Medications Enoxaparin Sodium (Lovenox) 40 mg SC DAILY [facility] Last Admin: 06/01/17 09:30 Dose: 40 mg Lactated Ringer's (Lactated Ringer's) 1,000 mls @ 175 mls/hr IV .Q5H43M [facility] Last Admin: 06/01/17 06:51 Dose: 175 mls/hr Morphine Sulfate (Morphine) 2 mg IV Q6H PRN PRN Reason: Pain, moderate (4-7) Last Admin: 06/01/17 09:28 Dose: 2 mg Ondansetron HCl (Zofran Inj) 4 mg IVP Q6 [facility] Last Admin: 06/01/17 06:47 Dose: 4 mg Pantoprazole Sodium (Protonix Ec Tab) 40 mg PO DAILY [facility] Last Admin: 06/01/17 09:30 Dose: 40 mg - Labs Labs: 06/01/17 07:41 06/01/17 07:41 Attending/Attestation - Attestation I have personally seen and examined this patient.: Yes I have fully participated in the care of the patient.: Yes I have reviewed all pertinent clinical information, including history, physical exam and plan: Yes Notes (Text): 06/01/17 11:08 Medical attending: Patient was seen and examined by me as well. Agree with the above note by the resident When we came and saw the patient she was not in any acute distress. She reported the pain was still there however tolerable. Yesterday she went for MRCP and this was reported as negative. Again the patient was reporting some mild pain when we saw her - however she said it was tolerable and did not ask for any pain medications. At this moment she remains on IVF and slowly advancing diet as tolerated. Possible maybe there was some contamination of the marijuna she was using, this was discussed with patient. thank you Samir Peñaloza
[2017-06-01] MEDS: Morphine 4 MG/ML VIAL IV PRN (09:28)
[2017-06-01] MEDS: Pantoprazole 40 mg EC Tab PO SCH (09:30)
[2017-06-01] MEDS: Enoxaparin 40 mg Syringe SC SCH (09:30)
[2017-06-02] MEDS: Lactated Ringer's 1,000 ML IV SCH ×5 (00:04→13:35)
[2017-06-02 00:54] VITALS: RESP 20
[2017-06-02] MEDS: Morphine 4 MG/ML VIAL IV PRN ×2 (02:16→09:53)
--- NOTE | 2017-06-02 07:39 | CP.PCM.PN ---
Subjective - Date & Time of Evaluation Date of Evaluation: 06/02/17 Time of Evaluation: 07:37 - Subjective Subjective: Patient seen and examined at bedside Mild abdominal pain but is improving. One episode of abdominal pain last night that patient reports required morphine. Located in RUQ and R. Flank radiating to epigastrum. Able to tolerate solid diet. States some abdominal pain in RUQ after eating but resolved Denies any nausea, vomiting, diarrhea. Objective - Vital Signs/Intake and Output Vital Signs (last 24 hours): Temp Pulse Resp BP Pulse Ox 98.5 F 62 20 106/66 95 06/01/17 23:35 06/01/17 23:35 06/01/17 23:35 06/01/17 23:35 06/01/17 23:35 - Medications Medications: Current Medications Enoxaparin Sodium (Lovenox) 40 mg SC DAILY [facility] Last Admin: 06/01/17 09:30 Dose: 40 mg Lactated Ringer's (Lactated Ringer's) 1,000 mls @ 175 mls/hr IV .Q5H43M [facility] Last Admin: 06/02/17 05:57 Dose: 175 mls/hr Morphine Sulfate (Morphine) 2 mg IV Q6H PRN PRN Reason: Pain, moderate (4-7) Last Admin: 06/02/17 02:16 Dose: 2 mg Ondansetron HCl (Zofran Inj) 4 mg IVP Q6 PRN PRN Reason: Nausea/Vomiting Pantoprazole Sodium (Protonix Ec Tab) 40 mg PO DAILY [facility] Last Admin: 06/01/17 09:30 Dose: 40 mg - Labs Labs: 06/01/17 07:41 06/01/17 07:41 - Constitutional Appears: Well - Head Exam Head Exam: ATRAUMATIC, NORMAL INSPECTION, NORMOCEPHALIC - Eye Exam Eye Exam: EOMI, Normal appearance, PERRL Pupil Exam: NORMAL ACCOMODATION, PERRL - ENT Exam ENT Exam: Mucous Membranes Moist, Normal Exam - Neck Exam Neck Exam: Full ROM, Normal Inspection. absent: Lymphadenopathy - Respiratory Exam Respiratory Exam: Clear to Ausculation Bilateral, NORMAL BREATHING PATTERN - Cardiovascular Exam Cardiovascular Exam: REGULAR RHYTHM, +S1, +S2. absent: Murmur - GI/Abdominal Exam GI & Abdominal Exam: Soft, Hyperactive Bowel Sounds. absent: Distended, Tenderness, Normal Bowel Sounds - Rectal Exam Rectal Exam: NORMAL INSPECTION - Exam Exam: Circumcision, NORMAL INSPECTION External exam: NORMAL EXTERNAL EXAM Speculum exam: NORMAL SPECULUM EXAM Bimanual exam: NORMAL BIMANUAL EXAM - Extremities Exam Extremities Exam: Full ROM, Normal Capillary Refill, Normal Inspection. absent : Joint Swelling, Pedal Edema - Back Exam Back Exam: NORMAL INSPECTION - Neurological Exam Neurological Exam: Alert, Awake, CN II-XII Intact, Normal Gait, Oriented x3 - Psychiatric Exam Psychiatric exam: Normal Affect, Normal Mood - Skin Skin Exam: Dry, Intact, Normal Color, Warm
[2017-06-02 07:46] VITALS: BP 108/68; PULSE 60; TEMP 98; O2SAT 100
[2017-06-02 07:59] LABS: BASO % 0.3 % (0.0-2.0); EOS # 0.1 K/uL (0.0-0.7); EOS % 1.4 % (0.0-4.0); HEMOGLOBIN 12.1 g/dL (11.0-16.0); LYMPH # 3.2 K/uL (1.0-4.3); LYMPH % 37.1 % (20.0-40.0); MEAN CELL VOLUME 96.2 fL (81.0-99.0); MEAN CORPUSCULAR HEMOGLOBIN 33.3 pg (27.0-31.0); MEAN CORPUSCULAR HGB CONC 34.6 g/dL (33.0-37.0); MEAN PLATELET VOLUME 9.7 fL (7.2-11.7); MONO # 0.4 K/uL (0.0-0.8); MONO % 5.1 % (0.0-10.0); NEUT # 4.8 K/uL (1.8-7.0); NEUT % 56.1 % (50.0-75.0); RBC 3.63 Mil/uL (3.80-5.20); RED CELL DISTRIBUTION WIDTH 12.6 % (11.5-14.5); WHITE BLOOD COUNT 8.6 K/uL (4.8-10.8)
[2017-06-02 08:15] LABS: ALB/GLOB RATIO 1.2 (1.0-2.1); ALBUMIN 3.5 g/dL (3.5-5.0); ALT/SGPT 41 U/L (9-52); AST/SGOT 25 U/L (14-36); BLOOD UREA NITROGEN 7 mg/dL (7-17); CALCIUM 8.7 mg/dl (8.6-10.4); GFR AFRICAN-AMERICAN > 60; GFR NON-AFRICAN AMERICAN > 60
[2017-06-02] MEDS: Magnesium Sulfate 1 gm in D5W 1 GM/100 ML BAG IVPB SCH ×2 (09:57→10:58)
[2017-06-02] MEDS: Pantoprazole 40 mg EC Tab PO SCH (09:57)
[2017-06-02] MEDS: Enoxaparin 40 mg Syringe SC SCH (09:57)
--- NOTE | 2017-06-02 11:14 | CP.PCM.DIS ---
<Brian Gamez - Last Filed: 06/02/17 14:52> Provider - Provider Date of Admission: 05/30/17 02:29 Attending physician: Jesus Terrell MD Primary care physician: Mathew Consults: GI: Janie Time Spent in preparation of Discharge (in minutes): 45 Hospital Course - Lab Results Lab Results: Most Recent Lab Values WBC 8.6 K/uL (4.8-10.8) 06/02/17 07:48 RBC 3.63 Mil/uL (3.80-5.20) L 06/02/17 07:48 Hgb 12.1 g/dL (11.0-16.0) 06/02/17 07:48 Hct 35.0 % (34.0-47.0) 06/02/17 07:48 MCV 96.2 fL (81.0-99.0) 06/02/17 07:48 MCH 33.3 pg (27.0-31.0) H 06/02/17 07:48 MCHC 34.6 g/dL (33.0-37.0) 06/02/17 07:48 RDW 12.6 % (11.5-14.5) 06/02/17 07:48 Plt Count 171 K/uL (130-400) 06/02/17 07:48 MPV 9.7 fL (7.2-11.7) 06/02/17 07:48 Neut % (Auto) 56.1 % (50.0-75.0) 06/02/17 07:48 Lymph % (Auto) 37.1 % (20.0-40.0) 06/02/17 07:48 Preble % (Auto) 5.1 % (0.0-10.0) 06/02/17 07:48 Eos % (Auto) 1.4 % (0.0-4.0) 06/02/17 07:48 Baso % (Auto) 0.3 % (0.0-2.0) 06/02/17 07:48 Neut # (Auto) 4.8 K/uL (1.8-7.0) 06/02/17 07:48 Lymph # (Auto) 3.2 K/uL (1.0-4.3) 06/02/17 07:48 Preble # (Auto) 0.4 K/uL (0.0-0.8) 06/02/17 07:48 Eos # (Auto) 0.1 K/uL (0.0-0.7) 06/02/17 07:48 Baso # (Auto) 0.0 K/uL (0.0-0.2) 06/02/17 07:48 ESR 30 mm/hr (0-20) H 05/31/17 07:55 Sodium 142 mmol/L (132-148) 06/02/17 07:48 Potassium 4.0 mmol/L (3.6-5.2) 06/02/17 07:48 Chloride 100 mmol/L (98-107) 06/02/17 07:48 Carbon Dioxide 31 mmol/L (22-30) H 06/02/17 07:48 Anion Gap 15 (10-20) 06/02/17 07:48 BUN 7 mg/dL (7-17) 06/02/17 07:48 Creatinine 0.8 mg/dL (0.7-1.2) 06/02/17 07:48 Est GFR ( Amer) > 60 06/02/17 07:48 Est GFR (Non-Af Amer) > 60 06/02/17 07:48 Random Glucose 76 mg/dL (65-105) 06/02/17 07:48 Calcium 8.7 mg/dl (8.6-10.4) 06/02/17 07:48 Phosphorus 4.1 mg/dL (2.5-4.5) 06/02/17 07:48 Magnesium 1.5 mg/dL (1.6-2.3) L 06/02/17 07:48 Total Bilirubin 0.6 mg/dL (0.2-1.3) 06/02/17 07:48 AST 25 U/L (14-36) 06/02/17 07:48 ALT 41 U/L (9-52) 06/02/17 07:48 Alkaline Phosphatase 50 U/L (38-126) 06/02/17 07:48 C-Reactive Protein 19.10 mg/L (0.0-9.9) H 05/31/17 07:55 Total Protein 6.4 g/dL (6.3-8.3) 06/02/17 07:48 Albumin 3.5 g/dL (3.5-5.0) 06/02/17 07:48 Globulin 2.9 gm/dL (2.2-3.9) 06/02/17 07:48 Albumin/Globulin Ratio 1.2 (1.0-2.1) 06/02/17 07:48 Triglycerides 103 mg/dL (0-149) D 05/31/17 07:55 Cholesterol 123 mg/dL (0-199) 05/31/17 07:55 LDL Cholesterol Direct 79 mg/dL (0-129) 05/31/17 07:55 HDL Cholesterol 26 mg/dL (30-70) L 05/31/17 07:55 Lipase 3534 U/L (23-300) H 05/30/17 13:47 Urine Color Yellow (YELLOW) 05/30/17 00:31 Urine Clarity Hazy (Clear) 05/30/17 00:31 Urine pH 5.0 (5.0-8.0) 05/30/17 00:31 Ur Specific Kipling 1.019 (1.003-1.030) 05/30/17 00:31 Urine Protein Negative mg/dL (NEGATIVE) 05/30/17 00:31 Urine Glucose (UA) Normal mg/dL (Normal) 05/30/17 00:31 Urine Ketones Negative mg/dL (NEGATIVE) 05/30/17 00:31 Urine Blood Negative (NEGATIVE) 05/30/17 00:31 Urine Nitrate Negative (NEGATIVE) 05/30/17 00:31 Urine Bilirubin Negative (NEGATIVE) 05/30/17 00:31 Urine Urobilinogen Normal mg/dL (0.2-1.0) 05/30/17 00:31 Ur Leukocyte Esterase Neg Tad/uL (Negative) 05/30/17 00:31 Urine WBC (Auto) 1 /hpf (0-5) 05/30/17 00:31 Urine RBC (Auto) < 1 /hpf (0-3) 05/30/17 00:31 Ur Squamous Epith Cells 6 /hpf (0-5) H 05/30/17 00:31 Urine Bacteria Rare (<OCC) 05/30/17 00:31 Urine HCG, Qual Negative (NEGATIVE) 05/30/17 00:31 Urine Opiates Screen Negative (NEGATIVE) 05/31/17 09:13 Urine Methadone Screen Negative (NEGATIVE) 05/31/17 09:13 Ur Barbiturates Screen Negative (NEGATIVE) 05/31/17 09:13 Ur Phencyclidine Scrn Negative (NEGATIVE) 05/31/17 09:13 Ur Amphetamines Screen Negative (NEGATIVE) 05/31/17 09:13 U Benzodiazepines Scrn Negative (NEGATIVE) 05/31/17 09:13 U Oth Cocaine Metabols Negative (NEGATIVE) 05/31/17 09:13 U Cannabinoids Screen Positive (NEGATIVE) H 05/31/17 09:13 Hepatitis A IgM Ab Negative (NEGATIVE) 05/31/17 07:55 Hep Bs Antigen Negative (NEGATIVE) 05/31/17 07:55 Hep B Core IgM Ab Negative (NEGATIVE) 05/31/17 07:55 Hepatitis C Antibody Negative (NEGATIVE) 05/31/17 07:55 HIV 1&2 Antibody Screen Negative (NEGATIVE) 05/30/17 17:14 - Hospital Course Hospital Course: 32 year old female with recently diagnosed of lupus and fibromyalgia presents to the ED today complaining of epigastric abdominal pain. Patient reports her abdominal started 3 days ago and it has been getting progressively worse. Patient states the pain has sharp in quality and non radiating. The pain is worse with moving and does not improve with ibuprofen. Patient also report to have decreased appetite and feeling nauseous since the onset of the symptoms. Patient had a similar episode 5 months ago and it eventually resolved on without medical intervention. Patient denies alcohol consumption. Patient denies fever, chills, headache, shortness of breath chest pain, changes of bowel habits or urinary symptoms. Patient had CT a/p that did not show any inflammation of the pancreas, however, she had an elevated lipase over 3000. RUQ US was done and was negative. MRCP was done and was negative. Lipid panel was w/in normal limits. She had no clear caused for an elevated lipase that could be discovered when she was an inpatient. GI consulted Dr. Lima ordered an autoimmune workup for the pancreatits. Many of those test are still pending at this time. They are listed in the patients discharge instruction as well as given to the patient in person. She was able to tolerate a solid diet by the end of her stay. She was no longer vomiting and her pain was greatly reduced. Discharge Exam - Head Exam Head Exam: ATRAUMATIC, NORMAL INSPECTION - Eye Exam Eye Exam: EOMI, Normal appearance, PERRL Pupil Exam: NORMAL ACCOMODATION, PERRL - Respiratory Exam Respiratory Exam: Clear to PA & Lateral, UNREMARKABLE - Cardiovascular Exam Cardiovascular Exam: REGULAR RHYTHM - GI/Abdominal Exam GI & Abdominal Exam: Normal Bowel Sounds - Neurological Exam Neurological exam: Alert, CN II-XII Intact, Normal Gait, Oriented x3, Reflexes Normal - Psychiatric Exam Psychiatric exam: Normal Affect, Normal Mood - Skin Skin Exam: Dry, Intact, Normal Color, Warm Discharge Plan - Follow Up Plan Condition: GOOD Disposition: HOME/ ROUTINE Instructions: Smoking: Not Just Harmful to Your Lungs and Heart, Quitting Smoking, Pancreatitis (DC) Additional Instructions: 1. Please follow up with Dr. Carmona at [facility] as scheduled on 06/05/17 at 2pm. I have attatched the clinics information. 2. Through the clinic please follow up the following labs: - Gliadin Ab - ASCA - IgG subclass 4 - Live Kidney Nolan Ab - Mitochondrial Ab 3. Schedule follow up with [facility]v[employer] Dr. Parra 4. Discontinue Marijuana use. Call to find local treatment centers and support groups Referrals: [facility] at [facility] [Outside] <Marino Barone - Last Filed: 06/02/17 18:49> Provider - Provider Date of Admission: 05/30/17 02:29 Attending physician: Jesus Terrell MD Hospital Course - Lab Results Lab Results: Most Recent Lab Values WBC 8.6 K/uL (4.8-10.8) 06/02/17 07:48 RBC 3.63 Mil/uL (3.80-5.20) L 06/02/17 07:48 Hgb 12.1 g/dL (11.0-16.0) 06/02/17 07:48 Hct 35.0 % (34.0-47.0) 06/02/17 07:48 MCV 96.2 fL (81.0-99.0) 06/02/17 07:48 MCH 33.3 pg (27.0-31.0) H 06/02/17 07:48 MCHC 34.6 g/dL (33.0-37.0) 06/02/17 07:48 RDW 12.6 % (11.5-14.5) 06/02/17 07:48 Plt Count 171 K/uL (130-400) 06/02/17 07:48 MPV 9.7 fL (7.2-11.7) 06/02/17 07:48 Neut % (Auto) 56.1 % (50.0-75.0) 06/02/17 07:48 Lymph % (Auto) 37.1 % (20.0-40.0) 06/02/17 07:48 Preble % (Auto) 5.1 % (0.0-10.0) 06/02/17 07:48 Eos % (Auto) 1.4 % (0.0-4.0) 06/02/17 07:48 Baso % (Auto) 0.3 % (0.0-2.0) 06/02/17 07:48 Neut # (Auto) 4.8 K/uL (1.8-7.0) 06/02/17 07:48 Lymph # (Auto) 3.2 K/uL (1.0-4.3) 06/02/17 07:48 Preble # (Auto) 0.4 K/uL (0.0-0.8) 06/02/17 07:48 Eos # (Auto) 0.1 K/uL (0.0-0.7) 06/02/17 07:48 Baso # (Auto) 0.0 K/uL (0.0-0.2) 06/02/17 07:48 ESR 30 mm/hr (0-20) H 05/31/17 07:55 Sodium 142 mmol/L (132-148) 06/02/17 07:48 Potassium 4.0 mmol/L (3.6-5.2) 06/02/17 07:48 Chloride 100 mmol/L (98-107) 06/02/17 07:48 Carbon Dioxide 31 mmol/L (22-30) H 06/02/17 07:48 Anion Gap 15 (10-20) 06/02/17 07:48 BUN 7 mg/dL (7-17) 06/02/17 07:48 Creatinine 0.8 mg/dL (0.7-1.2) 06/02/17 07:48 Est GFR ( Amer) > 60 06/02/17 07:48 Est GFR (Non-Af Amer) > 60 06/02/17 07:48 Random Glucose 76 mg/dL (65-105) 06/02/17 07:48 Calcium 8.7 mg/dl (8.6-10.4) 06/02/17 07:48 Phosphorus 4.1 mg/dL (2.5-4.5) 06/02/17 07:48 Magnesium 1.5 mg/dL (1.6-2.3) L 06/02/17 07:48 Total Bilirubin 0.6 mg/dL (0.2-1.3) 06/02/17 07:48 AST 25 U/L (14-36) 06/02/17 07:48 ALT 41 U/L (9-52) 06/02/17 07:48 Alkaline Phosphatase 50 U/L (38-126) 06/02/17 07:48 C-Reactive Protein 19.10 mg/L (0.0-9.9) H 05/31/17 07:55 Total Protein 6.4 g/dL (6.3-8.3) 06/02/17 07:48 Albumin 3.5 g/dL (3.5-5.0) 06/02/17 07:48 Globulin 2.9 gm/dL (2.2-3.9) 06/02/17 07:48 Albumin/Globulin Ratio 1.2 (1.0-2.1) 06/02/17 07:48 Triglycerides 103 mg/dL (0-149) D 05/31/17 07:55 Cholesterol 123 mg/dL (0-199) 05/31/17 07:55 LDL Cholesterol Direct 79 mg/dL (0-129) 05/31/17 07:55 HDL Cholesterol 26 mg/dL (30-70) L 05/31/17 07:55 Lipase 3534 U/L (23-300) H 05/30/17 13:47 Urine Color Yellow (YELLOW) 05/30/17 00:31 Urine Clarity Hazy (Clear) 05/30/17 00:31 Urine pH 5.0 (5.0-8.0) 05/30/17 00:31 Ur Specific Kipling 1.019 (1.003-1.030) 05/30/17 00:31 Urine Protein Negative mg/dL (NEGATIVE) 05/30/17 00:31 Urine Glucose (UA) Normal mg/dL (Normal) 05/30/17 00:31 Urine Ketones Negative mg/dL (NEGATIVE) 05/30/17 00:31 Urine Blood Negative (NEGATIVE) 05/30/17 00:31 Urine Nitrate Negative (NEGATIVE) 05/30/17 00:31 Urine Bilirubin Negative (NEGATIVE) 05/30/17 00:31 Urine Urobilinogen Normal mg/dL (0.2-1.0) 05/30/17 00:31 Ur Leukocyte Esterase Neg Tad/uL (Negative) 05/30/17 00:31 Urine WBC (Auto) 1 /hpf (0-5) 05/30/17 00:31 Urine RBC (Auto) < 1 /hpf (0-3) 05/30/17 00:31 Ur Squamous Epith Cells 6 /hpf (0-5) H 05/30/17 00:31 Urine Bacteria Rare (<OCC) 05/30/17 00:31 Urine HCG, Qual Negative (NEGATIVE) 05/30/17 00:31 Urine Opiates Screen Negative (NEGATIVE) 05/31/17 09:13 Urine Methadone Screen Negative (NEGATIVE) 05/31/17 09:13 Ur Barbiturates Screen Negative (NEGATIVE) 05/31/17 09:13 Ur Phencyclidine Scrn Negative (NEGATIVE) 05/31/17 09:13 Ur Amphetamines Screen Negative (NEGATIVE) 05/31/17 09:13 U Benzodiazepines Scrn Negative (NEGATIVE) 05/31/17 09:13 U Oth Cocaine Metabols Negative (NEGATIVE) 05/31/17 09:13 U Cannabinoids Screen Positive (NEGATIVE) H 05/31/17 09:13 Anti-Mitochondrial Ab Negative (Negative) 05/31/17 07:55 Hepatitis A IgM Ab Negative (NEGATIVE) 05/31/17 07:55 Hep Bs Antigen Negative (NEGATIVE) 05/31/17 07:55 Hep B Core IgM Ab Negative (NEGATIVE) 05/31/17 07:55 Hepatitis C Antibody Negative (NEGATIVE) 05/31/17 07:55 HIV 1&2 Antibody Screen Negative (NEGATIVE) 05/30/17 17:14 Attending/Attestation - Attestation I have personally seen and examined this patient.: Yes I have fully participated in the care of the patient.: Yes I have reviewed all pertinent clinical information, including history, physical exam and plan: Yes Notes (Text): 06/02/17 18:48 Patient was seen and examined shortly after resident. Exam, assessment and plan discharge instructions were gone over with the resident. Discharge instructions were also gone over with the patient. Marino Barone D.O.
== END 2017-06-02 14:19 | disposition home or self-care (01) | DRG 204 ==
LOC: C.ER 23:31 → C.9E 05-30 02:29 → C.5S 05-30 03:07
PROVIDERS: ADMIT Family Medicine; ATTEND Family Medicine
DX: K85.90 Acute pancreatitis without necrosis or infection, unspecified (principal); M32.9 Systemic lupus erythematosus, unspecified; M79.7 Fibromyalgia; F17.210 Nicotine dependence, cigarettes, uncomplicated; F12.90 Cannabis use, unspecified, uncomplicated; K83.9 Disease of biliary tract, unspecified

== ENCOUNTER 2017-06-11 14:33 | Emergency (ER) | payer SELFPAY ==
[2017-06-11 14:33] VITALS: BMI 23.4
[2017-06-11] MEDS ORDERED: Sodium Chloride 0.9% 1,000 ML IV ONE (15:20)
[2017-06-11 15:21] VITALS: RESP 16; TEMP 98.9
--- NOTE | 2017-06-11 15:31 | C.PDOC ---
History Of Present Illness 32-year-old female, PMHx includes pancreatitis, presents to the emergency department with complaints of upper epigastric and right upper quadrant pain for the past three days. Pain is associated with nausea and non-bloody/non- bilious vomiting. Last episode was two days ago. States she took Ibuprofen with no relief, prompting visit. Denies fever or chills. Time Seen by Provider: 06/11/17 15:01 Chief Complaint (Nursing): Abdominal Pain History Per: Patient History/Exam Limitations: no limitations Onset/Duration Of Symptoms: Days Current Symptoms Are (Timing): Still Present Past Medical History Reviewed: Historical Data, Nursing Documentation, Vital Signs Vital Signs: Last Vital Signs Temp 98.9 F 06/11/17 15:15 Pulse 70 06/11/17 15:40 Resp 16 06/11/17 15:40 BP 100/67 06/11/17 15:40 Pulse Ox 98 06/11/17 17:47 - Medical History PMH: Fibromyalgia Denies: Chronic Kidney Disease Family History: States: No Known Family Hx - Social History Hx Alcohol Use: No Hx Substance Use: Yes - Immunization History Hx Tetanus Toxoid Vaccination: No Hx Influenza Vaccination: No Hx Pneumococcal Vaccination: No Review Of Systems Constitutional: Negative for: Fever Cardiovascular: Negative for: Chest Pain Gastrointestinal: Positive for: Nausea, Vomiting, Abdominal Pain Neurological: Negative for: Headache, Dizziness Physical Exam - Physical Exam Appears: Non-toxic, No Acute Distress Skin: Normal Color, Warm, Dry, No Rash Head: Atraumatic, Normacephalic Eye(s): bilateral: Normal Inspection, EOMI Nose: Normal Oral Mucosa: Moist Lips: Normal Appearing Neck: Normal ROM Chest: Symmetrical Cardiovascular: Rhythm Regular, No Murmur Respiratory: Normal Breath Sounds, No Accessory Muscle Use Gastrointestinal/Abdominal: Bowel Sounds, Soft, Tenderness (epigastric and RUQ mildly tender, no mass, neg Bae's sign), No Mass, No Distention, No Guarding , No Hernia Back: No CVA Tenderness, No Vertebral Tenderness Extremity: Normal ROM, No Deformity, No Swelling Neurological/Psych: Oriented x3, Normal Speech ED Course And Treatment - Laboratory Results Result Diagrams: 06/11/17 15:49 06/11/17 15:49 O2 Sat by Pulse Oximetry: 98 (RA) Pulse Ox Interpretation: Normal Medical Decision Making Medical Decision Making: Impression: upper abdominal pain Prior records reviewed patient was last seen and admitted 05/30/17 for pancreatitis and discharged on 06/02/17 and instructed to follow up in the clinic. Plan: * Labs * UA * IV NS * Morphine Labs reviewed and no acute changes and labs improved. No leukocytosis or bands. Lipase is 323 compared to 05/30/17, lipase was> 3000 1655 Patient re-evaluated and reports feeling better and reports pain has improved. She has no fever or signs of distress. Abdomen remains flat soft and no significant tenderness. Patient feels comfortable going home and will be discharged. Advise follow up in the clinic and will give Rx. Disposition Counseled Patient/Family Regarding: Diagnosis, Need For Followup, Rx Given - Disposition Referrals: Sabrina Carmona MD [Staff Provider] - Disposition: HOME/ ROUTINE Disposition Time: 17:01 Condition: GOOD Additional Instructions: Follow up with the clinic in 2-5 days for further evaluation. Take medications as prescribed. Return to the emergency department at any time if symptoms persist or worsen. You may call [facility] service for any assistance [phone]. Prescriptions: traMADol [Ultram] 50 mg PO Q8 #15 tab Instructions: Acute Abdomen (Belly Pain), Adult (DC) Forms: [employer] [facility] (Kiswahili) - POA Present On Arrival: None - Clinical Impression Clinical Impression: Upper abdominal pain - Scribe Statement The provider has reviewed the documentation as recorded by the Scribe (Carissa Sibley) All medical record entries made by the Scribe were at my direction and personally dictated by me. I have reviewed the chart and agree that the record accurately reflects my personal performance of the history, physical exam, medical decision making, and the department course for this patient. I have also personally directed, reviewed, and agree with the discharge instructions and disposition.
[2017-06-11] MEDS ORDERED: Morphine 4 MG/ML VIAL ONE (15:38)
[2017-06-11] MEDS ORDERED: Sodium Chloride 0.9% 1,000 ML ONE (15:38)
[2017-06-11 15:54] LABS: BASO # 0.1 K/uL (0.0-0.2); BASO % 0.6 % (0.0-2.0); EOS # 0.2 K/uL (0.0-0.7); EOS % 1.6 % (0.0-4.0); LYMPH # 2.5 K/uL (1.0-4.3); LYMPH % 23.9 % (20.0-40.0); MEAN CELL VOLUME 95.8 fL (81.0-99.0); MEAN CORPUSCULAR HEMOGLOBIN 33.7 pg (27.0-31.0); MEAN CORPUSCULAR HGB CONC 35.2 g/dL (33.0-37.0); MONO # 0.6 K/uL (0.0-0.8); MONO % 5.5 % (0.0-10.0); NEUT # 7.1 K/uL (1.8-7.0); NEUT % 68.4 % (50.0-75.0); NRBC % 0.1 % (0.0-2.0); RBC 4.15 Mil/uL (3.80-5.20); RED CELL DISTRIBUTION WIDTH 13.1 % (11.5-14.5); WHITE BLOOD COUNT 10.4 K/uL (4.8-10.8)
[2017-06-11 15:58] LABS: SQUAMOUS EPITHIAL 16 /hpf (0-5); URINE BACTERIA RARE (<OCC); URINE BILIRUBIN NEGATIVE (NEGATIVE); URINE BLOOD NEGATIVE (NEGATIVE); URINE CLARITY Hazy (Clear); URINE COLOR Yellow (YELLOW); URINE GLUCOSE (UA) NORMAL (Normal); URINE LEUKOCYTE ESTERASE NEG Leu/uL (Negative); URINE PROTEIN NEGATIVE (NEGATIVE); URINE UROBILINOGEN NORMAL mg/dL (0.2-1.0)
[2017-06-11 16:23] VITALS: BP 100/67; PULSE 70
[2017-06-11 16:36] LABS: ALB/GLOB RATIO 1.2 (1.0-2.1); ALBUMIN 4.4 g/dL (3.5-5.0); ALT/SGPT 35 U/L (9-52); AMYLASE 81 U/L (30-110); AST/SGOT 27 U/L (14-36); BLOOD UREA NITROGEN 12 mg/dL (7-17); CALCIUM 9.2 mg/dl (8.6-10.4); GFR AFRICAN-AMERICAN > 60; GFR NON-AFRICAN AMERICAN > 60; LIPASE 323 U/L (23-300)
[2017-06-11 17:01] VITALS: O2SAT 98
== END 2017-06-11 17:11 | disposition home or self-care (01) ==
LOC: C.ER 14:33
DX: R10.13 Epigastric pain (principal)
CPT/HCPCS: 80053; 81001; 82150; 83690; 85025; 96361; 96374; 96375; 99284; J2270; J2405; J7040

== ENCOUNTER 2017-09-02 22:33 | Emergency (ER) | payer OTHER ==
[2017-09-02 22:33] VITALS: BMI 23.4
[2017-09-02 22:43] VITALS: BP 124/74; PULSE 90; RESP 20; TEMP 98.9; O2SAT 95
--- NOTE | 2017-09-02 23:17 | C.PDOC ---
History Of Present Illness 32 year old female presents to the ER with a complaint of a sore throat and rash to the right thigh for the past 4 days, associated with subjective fever and chills. Patient reports she returned today from the [place]. Denies cough, headache, neck pain, or SOB. Time Seen by Provider: 09/02/17 22:55 Chief Complaint (Nursing): Abnormal Skin Integrity History Per: Patient History/Exam Limitations: no limitations Onset/Duration Of Symptoms: Days Current Symptoms Are (Timing): Still Present Location Of Injury: Right: Leg Quality Of Symptoms: Other (Rash) Recent travel outside of the [place]: Yes Past Medical History Reviewed: Historical Data, Nursing Documentation, Vital Signs Vital Signs: Last Vital Signs Temp 98.9 F 09/02/17 22:38 Pulse 90 09/02/17 22:38 Resp 20 09/02/17 22:38 BP 124/74 09/02/17 22:38 Pulse Ox 95 09/03/17 01:45 - Medical History PMH: Fibromyalgia Surgical History: No Surg Hx Family History: States: Unknown Family Hx - Social History Hx Alcohol Use: No Hx Substance Use: Yes - Immunization History Hx Tetanus Toxoid Vaccination: No Hx Influenza Vaccination: No Hx Pneumococcal Vaccination: No Review Of Systems Constitutional: Positive for: Fever (Subjective), Chills (Subjective) ENT: Positive for: Throat Pain Respiratory: Negative for: Cough, Shortness of Breath Musculoskeletal: Negative for: Neck Pain Skin: Positive for: Rash Neurological: Negative for: Headache Physical Exam - Physical Exam Appears: Non-toxic Skin: Warm, Dry, Rash (3x4cm area of erythema to right mid thigh with blisters consistent with small partial thickness burn, no streaking) Head: Atraumatic, Normacephalic Eye(s): bilateral: Normal Inspection Ear(s): Bilateral: Normal Nose: Normal Oral Mucosa: Moist Throat: Other (Enlarged tonsils with exudates right greater than left, uvula midline) Neck: Normal, Supple Chest: Symmetrical, No Tenderness Cardiovascular: Rhythm Regular Respiratory: Normal Breath Sounds, No Rales, No Rhonchi, No Wheezing Neurological/Psych: Oriented x3, Normal Speech ED Course And Treatment O2 Sat by Pulse Oximetry: 95 (Room air) Pulse Ox Interpretation: Normal Progress Note: Motrin and penicillin vk administered. Patient is resting comfortably in the ER in no acute distress, vitals are stable, will discharge home with Rx and instructions to follow up with PMD or return if symptoms worsen. Disposition Counseled Patient/Family Regarding: Diagnosis, Need For Followup, Rx Given - Disposition Referrals: Sabrina Carmona MD [Staff Provider] - Disposition: HOME/ ROUTINE Disposition Time: 23:15 Condition: STABLE Additional Instructions: Take medications as prescribed Increase PO fluids Apply antibacterial oint to area Return to ER if worse Prescriptions: Ibuprofen [Motrin] 600 mg PO Q6H #20 tab Penicillin VK [Penicillin VK Tab] 2 tab PO BID #28 tab Instructions: Skin Mcintyre (DC), Strep Throat (DC) Forms: [employer] (Guamanian) - Clinical Impression Clinical Impression: Tonsillitis, Rash in adult, Blistering rash - PA / [employer]W [employer]ER / Resident Statement MD/DO has reviewed & agrees with the documentation as recorded. - Scribe Statement The provider has reviewed the documentation as recorded by the Scribstephanie Mcleod All medical record entries made by the Daniibstephanie were at my direction and personally dictated by me. I have reviewed the chart and agree that the record accurately reflects my personal performance of the history, physical exam, medical decision making, and the department course for this patient. I have also personally directed, reviewed, and agree with the discharge instructions and disposition.
== END 2017-09-02 23:30 | disposition home or self-care (01) ==
LOC: C.ER 22:33
DX: R21 Rash and other nonspecific skin eruption (principal); J03.90 Acute tonsillitis, unspecified; S70.321A Blister (nonthermal), right thigh, initial encounter; X58.XXXA Exposure to other specified factors, initial encounter; M79.7 Fibromyalgia